=== PATIENT | female | born 1935 | race Caucasian/White ===

== ENCOUNTER → 2018-01-03 | Outpatient (CLI) | payer MEDICARE, OTHER ==
--- NOTE | 2018-01-07 18:12 | Diagnostic Imaging Report ---
#[id number] - MGSCR[facility] #UNILATERAL LEFT DIGITAL SCREENING MAMMOGRAM WITH CAD: 01/03/2018 CLINICAL: Routine screening. Comparison is made to exams dated: 09/28/2016 mammogram, 09/16/2015 mammogram, 09/16/2015 ultrasound, 07/26/2014 ultrasound and 07/26/2014 mammogram - [facility]. Current study contains 2 films. The tissue of the left breast is predominantly fatty. Current study was also evaluated with a Computer Aided Detection (CAD) system. There are benign calcifications in the left breast. There also are benign lymph nodes in the left breast. No significant masses, calcifications, or other findings are seen in the breast. There has been no significant interval change. IMPRESSION: BENIGN There is no mammographic evidence of malignancy. A 1 year screening mammogram is recommended. The patient will be notified by letter of the results. Maxime gao/kenyetta:01/06/2018 18:39:06 [employer] Cream Warmer: Vera MILLER(Rashaad)(M), [facility] letter sent: Compared to Prior B9 Mammogram BI-RADS: 2 Benign
== END | disposition home or self-care (01) ==
LOC: MAMMO 11:19
PROVIDERS: ATTEND Family Medicine
DX: Z12.31 Encounter for screening mammogram for malignant neoplasm of breast (principal)

== ENCOUNTER → 2019-02-22 | Outpatient (CLI) | payer MEDICARE, OTHER ==
--- NOTE | 2019-02-28 12:54 | Diagnostic Imaging Report ---
#[id number] - MGSCRLT #UNILATERAL LEFT DIGITAL SCREENING MAMMOGRAM WITH CAD: 02/22/2019 CLINICAL: Routine screening. Comparison is made to exams dated: 01/03/2018 mammogram - [facility] and 09/28/2016 mammogram - [facility]. The tissue of the left breast is predominantly fatty. Current study was also evaluated with a Computer Aided Detection (CAD) system. There is a stable benign focal asymmetry in the left breast at 1 o'clock anterior depth. No other significant masses or calcifications are seen in the breast. IMPRESSION: BENIGN There is no mammographic evidence of malignancy. A 1 year screening mammogram is recommended. The patient will be notified by letter of the results. KAITLYNN ASHER M.D., mc/kenyetta:02/28/2019 11:17:14 Energy Analyst: Vera MILLER(Rashaad)(Jj), [facility] letter sent: Normal Exam Mammogram BI-RADS: 2 Benign
== END ==
LOC: MAMMO 11:54
DX: Z12.31 Encounter for screening mammogram for malignant neoplasm of breast (principal)